=== PATIENT | female | born 1995 ===

== ENCOUNTER 2023-01-17 09:56 | Outpatient (CLI) | payer OTHER | END 2023-01-17 10:08 | disposition home or self-care (01) | LOC: PRENATAL 09:56 | PROVIDERS: ATTEND Obstetrics & Gynecology Maternal & Fetal Medicine | DX: O35.3XX0 Maternal care for (suspected) damage to fetus from viral disease in mother, not applicable or unspecified (principal); O44.00 Complete placenta previa NOS or without hemorrhage, unspecified trimester; Z3A.22 22 weeks gestation of pregnancy ==

== ENCOUNTER 2023-03-17 14:39 | Outpatient (CLI) | payer OTHER | END 2023-03-17 14:40 | disposition home or self-care (01) | LOC: PRENATAL 14:39 | PROVIDERS: ATTEND Obstetrics & Gynecology Maternal & Fetal Medicine | DX: O26.849 Uterine size-date discrepancy, unspecified trimester (principal); O36.8199 Decreased fetal movements, unspecified trimester, other fetus; Z3A.31 31 weeks gestation of pregnancy ==

== ENCOUNTER 2023-04-06 09:19 | Outpatient (CLI) | payer OTHER | END 2023-04-06 09:22 | disposition home or self-care (01) | LOC: PRENATAL 09:19 | PROVIDERS: ATTEND Obstetrics & Gynecology Maternal & Fetal Medicine | DX: O26.849 Uterine size-date discrepancy, unspecified trimester (principal); O36.8199 Decreased fetal movements, unspecified trimester, other fetus; Z3A.34 34 weeks gestation of pregnancy ==

== ENCOUNTER 2023-05-11 13:17 | Outpatient (CLI) | payer OTHER | END 2023-05-11 14:33 | disposition home or self-care (01) | LOC: NST 13:17 | PROVIDERS: ATTEND General Practice | DX: Z34.83 Encounter for supervision of other normal pregnancy, third trimester (principal) ==

== ENCOUNTER 2023-05-15 09:05 | Inpatient (IN) | payer OTHER ==
[~2023-05-15] VITALS: Ht 160 cm; Wt 64.4 kg
[2023-05-15] MEDS ORDERED: MISOPROSTOL 25 MCG TABLET VAG ONE (09:30)
[2023-05-15] MEDS ORDERED: RINGERS SOLUTION,LACTATED 1,000 ML IV SCH (09:30)
[2023-05-15] MEDS ORDERED: PRENATAL TABLE1 EAC1 PO (09:45)
[2023-05-15] MEDS ORDERED: FOLIC ACID0.8 M1 PO (09:45)
[2023-05-15 10:18] LABS: HEMATOCRIT 37.4 % (36.0-45.00); HEMOGLOBIN 12.7 g/dL (12.0-15.00); MEAN CELL VOLUME 89.3 fL (80.00-100.00); MEAN CORPUSCULAR HEMOGLOBIN 30.2 pg (27.00-32.0); MEAN CORPUSCULAR HGB CONC 33.8 g/dl (32.0-36.0); PLATELET COUNT 199 K/uL (150-450); RED BLOOD COUNT 4.18 M/uL (4.00-6.00); RED CELL DISTRIBUTION WIDTH 14.6 % (11.5-14.5)
[2023-05-15 10:20] LABS: PH,URINE 6.5 (5.0-8.0); URINE APPEARANCE Cloudy; URINE BILIRRUBIN Negative (NEGATIVE); URINE BLOOD Negative; URINE COLOR Yellow; URINE GLUCOSE Negative (NEGATIVE); URINE LEUKOCYTE Large; URINE NITRATE Negative; URINE PROTEIN Trace (NEGATIVE)
[2023-05-15 10:21] LABS: URINE BACTERIA 7218.3 uL (0.0-1933); URINE EPITHELIAL CELLS 162.1 uL (0.0-38.8); URINE RBC 3.4 uL (0.0-20.8); URINE WBC 226.4 uL (0.0-23.2)
[2023-05-15 10:35] LABS: BILIRUBIN TOTAL 0.56 mg/dL (0.3-1.2); CALCIUM 8.9 mg/dL (8.5-10.1); CREATININE SERUM 0.63 mg/dL (0.55-1.02); GFR 114.23; GLOBULINA 3.3 G/DL (2.4-3.5); POTASSIUM 3.82 mEq/L (3.5-5.1); TOTAL PROTEIN 6.3 gm/dL (6.4-8.2)
[2023-05-15 10:38] LABS: INR < 0.93; PARTIAL THROMBOPLASTIN TIME 27.3 SECONDS (22.0-34.0); PROTHROMBIN TIME 9.5 SECONDS (9.0-11.5)
[2023-05-15 12:00] LABS: URINE CRYSTALS FEW /HPF
[2023-05-15] MEDS ORDERED: CHLORHEXIDINE GLUCONATE 120 ML BOTTLE TOP ONE (16:19)
[2023-05-15] MEDS ORDERED: ERYTHROMYCIN BASE 1 GM TUBE OP ONE (16:19)
[2023-05-15] MEDS ORDERED: OXYTOCIN 500 ML IV SCH (16:30)
[2023-05-15] MEDS ORDERED: PROMETHAZINE HCL 25 MG/ML AMPUL IM ONE (18:45)
[2023-05-15] MEDS ORDERED: MEPERIDINE HCL/PF 25 MG/ML VIAL IM ONE (18:45)
[2023-05-16] MEDS ORDERED: CEFAZOLIN SODIUM 1,000 MG VIAL IV ONE (00:45)
[2023-05-16] MEDS ORDERED: ERYTHROMYCIN BASE 3.5 GM OINT...G. OP ONE (01:21)
[2023-05-16] MEDS ORDERED: OXYTOCIN 10 UNITS/ML VIAL ONE ×2 (01:21→04:50)
[2023-05-16] MEDS ORDERED: FAMOTIDINE/PF 20 MG/2 ML VIAL IV SCH (02:24)
[2023-05-16] MEDS ORDERED: MEPERIDINE HCL/PF 25 MG/ML VIAL IV PRN (02:30)
[2023-05-16] MEDS ORDERED: KETOROLAC TROMETHAMINE 30 MG VIAL IV PRN (02:30)
[2023-05-16] MEDS ORDERED: PROMETHAZINE HCL 25 MG/ML AMPUL IV PRN (02:30)
[2023-05-16] MEDS ORDERED: RINGERS SOLUTION,LACTATED 1,000 ML IV SCH (02:30)
[2023-05-16] MEDS ORDERED: ONDANSETRON HCL 2 MG/ML VIAL IV PRN (02:30)
[2023-05-16] MEDS ORDERED: OXYTOCIN 1,000 ML IV SCH (02:30)
[2023-05-16] MEDS ORDERED: ERYTHROMYCIN BASE 1 GM TUBE OP ONE (06:45)
[2023-05-16] MEDS ORDERED: OXYTOCIN 10 UNITS/ML VIAL IV ONE (06:45)
[2023-05-16 07:12] LABS: HEMATOCRIT 41.1 % (36.0-45.00); HEMOGLOBIN 14.1 g/dL (12.0-15.00); MEAN CELL VOLUME 90.8 fL (80.00-100.00); MEAN CORPUSCULAR HEMOGLOBIN 31.2 pg (27.00-32.0); MEAN CORPUSCULAR HGB CONC 34.3 g/dl (32.0-36.0); PLATELET COUNT 210 K/uL (150-450); RED BLOOD COUNT 4.53 M/uL (4.00-6.00); RED CELL DISTRIBUTION WIDTH 14.7 % (11.5-14.5)
[2023-05-16] MEDS ORDERED: SIMETHICONE 125 MG CAPSULE PO SCH (16:42)
[2023-05-16] MEDS ORDERED: OxyCODONE HCL/APAP UD (PERCOCET) PO PRN (16:45)
[2023-05-16] MEDS ORDERED: IBUprofen 800 MG TABLET PO PRN (16:45)
[2023-05-16] MEDS ORDERED: DOCUSATE SODIUM 100MG CAP PO SCH (17:00)
[2023-05-17 14:28] LABS: HEMATOCRIT 32.2 % (36.0-45.00); MEAN CELL VOLUME 90.7 fL (80.00-100.00); MEAN CORPUSCULAR HGB CONC 34.2 g/dl (32.0-36.0); PLATELET COUNT 219 K/uL (150-450); RED BLOOD COUNT 3.55 M/uL (4.00-6.00); RED CELL DISTRIBUTION WIDTH 14.8 % (11.5-14.5)
[2023-05-17 14:33] LABS: MEAN CORPUSCULAR HEMOGLOBIN 30.9 pg (27.00-32.0)
[2023-05-17 19:00] LABS: HEMATOCRIT 32.1 % (36.0-45.00); HEMOGLOBIN 10.8 g/dL (12.0-15.00); MEAN CELL VOLUME 91.2 fL (80.00-100.00); MEAN CORPUSCULAR HEMOGLOBIN 30.8 pg (27.00-32.0); MEAN CORPUSCULAR HGB CONC 33.8 g/dl (32.0-36.0); PLATELET COUNT 223 K/uL (150-450); RED BLOOD COUNT 3.52 M/uL (4.00-6.00); RED CELL DISTRIBUTION WIDTH 14.9 % (11.5-14.5)
== END 2023-05-19 13:44 | disposition home or self-care (01) | DRG 788 ==
LOC: LDR 09:05 → OB/GYN 09:05 → LDR 09:50 → OB/GYN 05-16 04:18
PROVIDERS: ADMIT General Practice; ATTEND General Practice
PROC: 3E0P7VZ Introduction of Hormone into Female Reproductive, Via Natural or Artificial Opening (ICD-10-PCS; 2023-05-15)
PROC: 4A1HXCZ Monitoring of Products of Conception, Cardiac Rate, External Approach (ICD-10-PCS; 2023-05-15)
PROC: 3E033VJ Introduction of Other Hormone into Peripheral Vein, Percutaneous Approach (ICD-10-PCS; 2023-05-16)
PROC: 10D00Z1 Extraction of Products of Conception, Low, Open Approach (ICD-10-PCS; principal; 2023-05-16 01:15)
DX: O82 Encounter for cesarean delivery without indication (principal); O62.1 Secondary uterine inertia; Z3A.39 39 weeks gestation of pregnancy; Z37.0 Single live birth; Z20.822 Contact with and (suspected) exposure to COVID-19